=== PATIENT | female | born 1985 | race Caucasian/White ===

== ENCOUNTER 2017-03-17 19:21 | Emergency (ER) | payer BC ==
[2017-03-17 19:24] VITALS: BP 108/69; PULSE 54; TEMP 98
[2017-03-17] MEDS ORDERED: ZOLOFT 100MG100 MG PO (19:29)
[2017-03-17] MEDS ORDERED: LAMICTAL200 MG PO (19:29)
[2017-03-17] MEDS ORDERED: BACTROBAN15 GM TOP (19:30)
[2017-03-17] MEDS ORDERED: KLONOPIN2 MG PO (19:30)
[2017-03-17] MEDS ORDERED: NORCO 325 MG-51 TAB PO ×2 (20:24→21:05)
[2017-03-17] MEDS ORDERED: DOXYCYCLINE 10100 MG PO ×2 (20:24→21:05)
== END 2017-03-17 21:13 | disposition home or self-care (01) ==
LOC: COL.ER 19:21
DX: S61.012A Laceration without foreign body of left thumb without damage to nail, initial encounter (principal); L08.9 Local infection of the skin and subcutaneous tissue, unspecified; W26.0XXA Contact with knife, initial encounter; Y92.009 Unspecified place in unspecified non-institutional (private) residence as the place of occurrence of the external cause; F32.9 Major depressive disorder, single episode, unspecified

== ENCOUNTER 2018-04-15 07:03 | Inpatient (IN) | payer BC ==
[~2018-04-15] VITALS: Ht 162.6 cm; Wt 71.8 kg
[2018-04-15] VITALS (9 sets, daily range): BP systolic 104–131; BP diastolic 62–93; PULSE 53–77; TEMP 97.8
[~2018-04-15 07:03] MED LIST: BACTROBAN15 GM TOP; DOXYCYCLINE 10100 MG PO; KLONOPIN2 MG PO; LAMICTAL200 MG PO; NORCO 325 MG-51 TAB PO; ZOLOFT 100MG100 MG PO
[2018-04-15 19:44] LABS: BASO % 0.3 % (0.0-2.0); EOS # 0.1 (0.0-0.7); EOS % 0.9 % (0-4.0); GRAN # 5.2 (1.4-6.5); GRAN % 69.7 % (42.2-75.2); HEMATOCRIT 42.7 % (37.0-47.0); HEMOGLOBIN 14.8 g/dl (12.5-16.0); LYMPH # 1.7 (1.2-3.4); LYMPH % 22.7 % (20.0-51.0); MEAN CELL VOLUME 93 fl (80.0-100.0); MEAN CORPUSCULAR HEMOGLOBIN 32 pg (27.0-31.0); MEAN CORPUSCULAR HGB CONC 35 g/dl (33.0-37.0); MEAN PLATELET VOLUME 11.1 fl (7.4-10.4); MONO # 0.4 (0.1-0.6); MONO % 5.9 % (1.7-9.3); PLATELET COUNT 146 K/mm3 (130-400); RED BLOOD COUNT 4.61 M/mm3 (4.10-5.30); REDCELL DISTRIBUTION WIDTH-CV 13.1 % (11.5-14.5)
[2018-04-16] VITALS (54 sets, daily range): BP systolic 96–166; BP diastolic 60–87; PULSE 57–153; TEMP 97.5–98.9
[2018-04-16] MEDS ORDERED: CALCIUM CARBON650 M2 (17:51)
[2018-04-16] MEDS ORDERED: PRENATAL1 TA7 PO (17:51)
[2018-04-17 00:04] VITALS: BP 112/71; PULSE 83; TEMP 97.6
[2018-04-17 05:07] VITALS: BP 109/67; PULSE 102; TEMP 97.5
[2018-04-17 07:10] VITALS: BP 112/69; PULSE 96; TEMP 98.5
[2018-04-17 07:47] LABS: HEMATOCRIT 34.3 % (37.0-47.0); HEMOGLOBIN 11.8 g/dl (12.5-16.0)
[2018-04-17] MEDS ORDERED: IBU600 MG PO (08:38)
[2018-04-17] MEDS ORDERED: LOVENOX 4040 MG/0.4 SQ (08:38)
[2018-04-17] MEDS ORDERED: PERCOCET 325 MG1 TA2 PO (08:38)
[2018-04-17 16:19] VITALS: BP 126/75; PULSE 67; TEMP 97.8
[2018-04-17 21:00] VITALS: BP 112/81; PULSE 74; TEMP 97.8
[2018-04-18 04:00] VITALS: BP 116/73; PULSE 72; TEMP 98.1
[2018-04-18 06:30] VITALS: BP 123/74; PULSE 84; TEMP 97.9
== END 2018-04-18 14:55 | disposition home or self-care (01) | DRG 775 ==
LOC: LDR 07:03 → OB 04-16 15:00
PROVIDERS: Obstetrics & Gynecology
PROC: 10D07Z6 Extraction of Products of Conception, Vacuum, Via Natural or Artificial Opening (ICD-10-PCS; principal; 2018-04-16)
PROC: 0KQM0ZZ Repair Perineum Muscle, Open Approach (ICD-10-PCS; 2018-04-16)
PROC: 10907ZC Drainage of Amniotic Fluid, Therapeutic from Products of Conception, Via Natural or Artificial Opening (ICD-10-PCS; 2018-04-16)
PROC: 3E033VJ Introduction of Other Hormone into Peripheral Vein, Percutaneous Approach (ICD-10-PCS; 2018-04-16)
DX: O76 Abnormality in fetal heart rate and rhythm complicating labor and delivery (principal); O36.0930 Maternal care for other rhesus isoimmunization, third trimester, not applicable or unspecified; O99.12 Other diseases of the blood and blood-forming organs and certain disorders involving the immune mechanism complicating childbirth; D68.52 Prothrombin gene mutation; O70.1 Second degree perineal laceration during delivery; Z3A.40 40 weeks gestation of pregnancy; Z37.0 Single live birth; O99.344 Other mental disorders complicating childbirth; F41.8 Other specified anxiety disorders; O43.123 Velamentous insertion of umbilical cord, third trimester
CPT/HCPCS: J1650; J2540; J2590; J3105; J7120

== ENCOUNTER → 2018-04-22 | Outpatient (CLI) | payer BC ==
[~2018-04-22] MED LIST changes: +CALCIUM CARBON650 M2; +IBU600 MG PO; +LOVENOX 4040 MG/0.4 SQ; +PERCOCET 325 MG1 TA2 PO; +PRENATAL1 TA7 PO
== END ==
LOC: LAC 10:41
DX: Z39.1 Encounter for care and examination of lactating mother (principal); Z71.89 Other specified counseling

== ENCOUNTER → 2018-04-29 | Outpatient (CLI) | payer BC | LOC: LAC 10:52 | DX: Z39.1 Encounter for care and examination of lactating mother (principal); Z71.89 Other specified counseling ==

== ENCOUNTER → 2018-05-06 | Outpatient (CLI) | payer BC | LOC: LAC 11:07 | DX: Z39.1 Encounter for care and examination of lactating mother (principal); Z71.89 Other specified counseling ==

== ENCOUNTER → 2018-06-03 | Outpatient (CLI) | payer BC | LOC: LAC 10:28 | DX: Z39.1 Encounter for care and examination of lactating mother (principal); Z71.89 Other specified counseling ==

== ENCOUNTER 2019-06-14 08:09 | Emergency (ER) | payer BC ==
[~2019-06-14] VITALS: Ht 160 cm; Wt 61.8 kg
[2019-06-14 08:26] VITALS: TEMP 98.6
[2019-06-14] MEDS ORDERED: ZOLOFT 50MG50 MG PO (08:28)
[2019-06-14] MEDS ORDERED: CALCIUM CARBON650 M2 (08:29)
[2019-06-14 10:07] VITALS: BP 115/67; PULSE 77
== END 2019-06-14 10:08 | disposition home or self-care (01) ==
LOC: COL.ER 08:09
DX: R51 Headache (principal); Z90.89 Acquired absence of other organs; Z88.1 Allergy status to other antibiotic agents
CPT/HCPCS: J1200; J1885; J2765; J7030

== ENCOUNTER 2020-06-16 09:30 | Outpatient (CLI) | payer BC ==
[~2020-06-16] VITALS: Ht 162.6 cm; Wt 68.2 kg
[2020-06-16] VITALS (27 sets, daily range): BP systolic 96–127; BP diastolic 62–80; PULSE 65–104; TEMP 97.9–98.3
--- NOTE | 2020-06-16 09:16 | NUR ---
Patient ambulatory to LR3, changed into gown, FHR/TOCO monitors placed. Patient states that she has been having contractions the last two days and were pretty regular before she came in. Denies any leaking of fluid/vaginal bleeding/decreased movement. Plan of care discussed. 0925: SVE-fingertip/-[address] Garcia at bedside and reviewing FHR strip and updated.
[~2020-06-16 09:30] MED LIST changes: +ZOLOFT 50MG50 MG PO
--- NOTE | 2020-06-16 10:00 | NUR ---
0953- Dr Garcia at bedside. Discusses pain and symptoms. Orders received.
[2020-06-16] MEDS ORDERED: TYLENOL 500MG500 MG PO (10:02)
[2020-06-16 10:39] LABS: COLLECTION METHOD CLEAN CATCH
[2020-06-16 10:45] LABS: BASO % 0.2 % (0.0-2.0); EOS # 0.1 (0.0-0.7); EOS % 0.6 % (0-4.0); GRAN # 7.3 (1.4-6.5); GRAN % 80.6 % (42.2-75.2); HEMATOCRIT 36.8 % (37.0-47.0); HEMOGLOBIN 12.2 g/dl (12.5-16.0); LYMPH # 1.2 (1.2-3.4); LYMPH % 13.7 % (20.0-51.0); MEAN CELL VOLUME 93 fl (80.0-100.0); MEAN CORPUSCULAR HEMOGLOBIN 31 pg (27.0-31.0); MEAN CORPUSCULAR HGB CONC 33 g/dl (33.0-37.0); MEAN PLATELET VOLUME 11.7 fl (7.4-10.4); MONO # 0.4 (0.1-0.6); PLATELET COUNT 149 K/mm3 (130-400); RED BLOOD COUNT 3.94 M/mm3 (4.10-5.30); REDCELL DISTRIBUTION WIDTH-CV 13.3 % (11.5-14.5)
[2020-06-16 10:48] LABS: PH 7 (5-8); SQUAMOUS EPITHELIAL None Seen /hpf; URINE APPEARANCE Hazy; URINE BACTERIA None Seen /hpf; URINE BILIRUBIN Negative (NEGATIVE); URINE BLOOD Negative (NEGATIVE); URINE COLOR Yellow; URINE GLUCOSE Negative (NEGATIVE); URINE KETONE Trace (NEGATIVE); URINE LEUKOCYTE ESTERASE Negative (NEGATIVE); URINE NITRATE Negative (NEGATIVE); URINE PROTEIN(semi-quant) Negative (NEGATIVE); URINE RBC None Seen /hpf; URINE UROBILINOGEN Negative (NEGATIVE)
[2020-06-16 10:54] LABS: ALBUMIN 3.6 gm/dL (3.5-5.0); BILIRUBIN,TOTAL 0.3 mg/dL (0.0-1.0); CALCIUM 9.1 mg/dL (8.4-10.2); CREATININE, serum 0.65 (0.52-1.25); POTASSIUM 3.8 mmol/L (3.4-5.0); TOTAL PROTEIN 6.7 gm/dL (6.4-8.2)
--- NOTE | 2020-06-16 11:25 | NUR ---
1125- Pt states pain is bearable now, improved after Vistaril. Pt states pain is constant, mostly in her back, feeling cramping also but that pain does not compare to the other pain. Pt attempted to reposition from sitting straight up in bed to semi-fowlers with LL. Pt unable to tolerate that position and assisted back to high-fowlers.
--- NOTE | 2020-06-16 12:30 | NUR ---
1200- Pt states pain continues to be constant, in her mid-back and around to her abd, can feel cramping with contractions but the cramping is bearable compaired to the other pain. Pt unable to tolerate pain laying down or on side. Most comfortable sitting up in high-fowlers position.
--- NOTE | 2020-06-16 13:30 | NUR ---
1325- Kpad given and precautions explained. Pt verbalizes understanding.
--- NOTE | 2020-06-16 14:33 | NUR ---
1401- Logan US tech at bedside. EFM and TOCO off. Pt repositioned to with WL. 1433- EFM and TOCO applied and tracing. Pt states no change in pain. 05/13.
--- NOTE | 2020-06-16 16:00 | NUR ---
1543- Pt states her pain has improved to 6/10. Pt up to bathroom to void. Pt visually more uncomfortable after returning to bed. Pt states pain is worse while up and walking around.
--- NOTE | 2020-06-16 17:00 | NUR ---
1700: Dr. Garcia at nurses station and reviews FHR strip and updated. 1705: Dr. Garcia at bedside and assessing patient. Discussing options to manage pain. Patient and spouse discussing decision. 1720: Patient wanting to stay the night and try pain medications here to rest. Dr. Garcia orders to give morphine 2mg IV, phenergan 12.5mg IV, and LR continuously through the night, can be intermittently monitored and regular diet. Patient agrees with plan of care. 1800: Patient nauseated at this time. 1815: Bedside report given to Ugo GILL.
--- NOTE | 2020-06-16 17:20 | NUR ---
SVE per physician-fingertip and thick and has no worries for active labor at this time.
[2020-06-17] VITALS (16 sets, daily range): BP systolic 90–105; BP diastolic 52–69; PULSE 76–112; TEMP 98.2
--- NOTE | 2020-06-17 07:40 | NUR ---
DR KIDD HERE TO SEE PT. PT DENIES ANY PAIN OR DISCOMFORT. DISCHARGE ORDER RECEIVED. IV DISCONTINUED. PT EATING BREAKFAST.
--- NOTE | 2020-06-17 08:30 | NUR ---
PT REPORTS SHE TOLERATED HER BREAKFAST WELL AND IS STILL NOT EXPERIENCING ANY PAIN LIKE YESTERDAY. WOULD LIKE TO GO HOME.
== END 2020-06-17 08:55 | disposition home or self-care (01) ==
LOC: LDR 09:30 → LDRO 09:30
PROVIDERS: Obstetrics & Gynecology
DX: O26.893 Other specified pregnancy related conditions, third trimester (principal); Z3A.35 35 weeks gestation of pregnancy
CPT/HCPCS: OP; J2270; J2550; J7120

== ENCOUNTER → 2020-07-12 | Outpatient (CLI) | payer BC ==
[~2020-07-12] MED LIST changes: +TYLENOL 500MG500 MG PO; +ZYRTEC 10MG10 MG PO
== END | disposition still patient (30) ==
LOC: ZCOL.LAB 08:00
DX: Z20.828 Contact with and (suspected) exposure to other viral communicable diseases (principal)

== ENCOUNTER 2020-07-15 07:26 | Inpatient (IN) | payer BC ==
[~2020-07-15] VITALS: Ht 162.6 cm; Wt 70.0 kg
[2020-07-15] VITALS (49 sets, daily range): BP systolic 99–138; BP diastolic 55–83; PULSE 56–91; TEMP 98.2–98.6
[~2020-07-15 07:26] MED LIST changes: -ZYRTEC 10MG10 MG PO
--- NOTE | 2020-07-15 07:35 | NUR ---
Patient arrives ambulatory with spouse for scheduled induction of labor. Patient reports occasional cramping but denies contractions, ROM, or vaginal bleeding. Reports normal movement. Patient changes into gown, EFM explained and placed. VSS. Reviewed plan of care for induction. Patient agrees and denies questions. Assessment completed. 0740- IV started in LFA, labs obtained and sent per order. LR infusing per order. Consents explained and signed. Patient denies questions. 0805- Reactive, category 1 FHR strip obtained. Reviewed Pitocin administration with patient, agrees and denies questions. Pitocin started at 2 mU per protocol and order. 0807- Variable deceleration noted tracing intermittently to 90 bpm while patient sitting upright in bed. Patient repositioned WL. Will continue to monitor.
[2020-07-15] MEDS ORDERED: ZYRTEC 10MG10 MG PO (07:54)
[2020-07-15] MEDS ORDERED: CALCIUM CARBON650 M2 (07:54)
[2020-07-15 08:12] LABS: BASO % 0.3 % (0.0-2.0); EOS # 0.1 (0.0-0.7); EOS % 1.5 % (0-4.0); GRAN # 5.7 (1.4-6.5); GRAN % 73.9 % (42.2-75.2); HEMOGLOBIN 12.2 g/dl (12.5-16.0); LYMPH # 1.4 (1.2-3.4); LYMPH % 17.7 % (20.0-51.0); MEAN CELL VOLUME 91 fl (80.0-100.0); MEAN CORPUSCULAR HEMOGLOBIN 31 pg (27.0-31.0); MEAN CORPUSCULAR HGB CONC 33 g/dl (33.0-37.0); MEAN PLATELET VOLUME 11.3 fl (7.4-10.4); MONO # 0.5 (0.1-0.6); MONO % 5.8 % (1.7-9.3); PLATELET COUNT 152 K/mm3 (130-400); REDCELL DISTRIBUTION WIDTH-CV 14.6 % (11.5-14.5)
[2020-07-15 08:14] LABS: HEMATOCRIT 36.5 % (37.0-47.0)
--- NOTE | 2020-07-15 08:50 | NUR ---
Dr. Garcia at bedside, reviews FHR strip since admission. Vertex presentation confirmed via bedside ultrasound per provider. SVE per provider . Discussing plan of care to continue Pitocin induction and physician will reevaluate for AROM later on. Orders to continue increasing Pitocin and patient may have epidural when desired. Patient agrees and denies questions.
--- NOTE | 2020-07-15 09:30 | NUR ---
Patient assisted to birthing ball after bathroom.
--- NOTE | 2020-07-15 11:20 | NUR ---
Patient standing at the bedisde rocking with contractions.
--- NOTE | 2020-07-15 12:30 | NUR ---
Patient requests to rest in bed. Repositioned LL with peanut ball.
--- NOTE | 2020-07-15 12:45 | NUR ---
Blood bank notifies RN regarding antibody screen from T&S specimen. RN notifies Dr. Garcia, orders to send out lab result. Patient updated on results and plan of care. Denies questions.
--- NOTE | 2020-07-15 13:10 | NUR ---
Patient back up to birthing ball.
--- NOTE | 2020-07-15 15:25 | NUR ---
1527- SVE per patient request /-2. Patient repositioned back on birthing ball. 1531- Variable deceleration noted to 50 bpm lasting approximately 60 seconds. Patient back to bed and repositioned LL. SVE unchanged, vertex well applied to cervix. Early decelerations noted upon repositioning. Dr. Garcia notified, see physician notification. Patient updated on plan of care. Breathing through contractions.
--- NOTE | 2020-07-15 16:35 | NUR ---
1635- Patient sitting upright in bed for epidural placement. Breathing through contractions. 1646- Epidural test dose by Chandler Cline CRNA. Patient tolerates well. No adverse reactions noted. 1641, 1643- Late deceleations noted with contractions. 1650- Patient repositioned WL following epidural. Updated on plan of care and safety.
--- NOTE | 2020-07-15 18:20 | NUR ---
Report to Gini Valentine RN who assumes care of patient at this time.
[2020-07-15] MEDS ORDERED: IBU600 MG PO (19:54)
[2020-07-15] MEDS ORDERED: LOVENOX 4040 MG/0.4 SQ (19:55)
--- NOTE | 2020-07-15 20:43 | NUR ---
1819 - FHR continues to have intermittent late decelerations with moderate variability and accelerations. SPO2 monitor applied to mother, RN at bedside. Mother repositioned to at 1822. Pitocin continued at 20mu/ml/hr per physician. 1830 - Variable decel following contraction, FHR continues to have moderate variability and accelerations. 1832 - Marked variability with contraction at 183 through 1834 followed by late deceleration with FHR blanca at 70. RN at bedside, verified FHR with maternal radial pulse. 1837 - IV fluid bolus started. 1852 - SVE 7-8/90/0. Marked variability with contraction. FSE application attempted at 1855, not tracing well and infant moved so unable to adjust. FHR monitoring continued with external monitor. Dr. Garcia to pt bedside at 1857. Current plan continued per physician, physician remains on unit. 1909 - Baseline indeterminate at this time. Periods of marked variability alternating with late declerations noted. FHR not tracing well, RN remians at bedside. Pt repositioned RL. 1913 - SVE C/+1. Dr. Garcia at desk and notified. Nursery RN notified. 1917 - Dr. Garcia to bedside. Chacko removed at this time, pt repositioned in [facility] for delivery. Dariusz Lovett RN of nursery to bedside. Pt pushing with contractions with physician and RN at bedside. Late decelerations and intermittent FHR monitoring continue. 1931 - Viable male delivered spontaneously by Dr. Garcia. Loose nuchal x1. placed on mother's abdomen, care of infant transferred to Dariusz Lovett RN of nursery. Cord clamped by Dr. Garcia and cut by father. Placenta spontaneously delivered at [address] Garcia. Pitocin started per protocol at this time. 2nd degree perineal repair performed by Dr. Garcia. 1944 - Pericare provided, pt repositioned for comfort, ice pack placed. Pt denies needs at this time.
[2020-07-16 00:03] VITALS: BP 110/59; PULSE 66
[2020-07-16 04:16] VITALS: BP 98/67; PULSE 73
[2020-07-16 07:30] VITALS: BP 108/62; PULSE 71; TEMP 97.7
[2020-07-16 09:01] LABS: HEMATOCRIT 32.6 % (37.0-47.0); HEMOGLOBIN 10.9 g/dl (12.5-16.0)
--- NOTE | 2020-07-16 12:32 | NUR ---
stopped by but nothing needed at this time.
[2020-07-16 13:00] VITALS: BP 96/58; PULSE 73; TEMP 98.1
[2020-07-16 16:48] VITALS: BP 111/70; PULSE 78; TEMP 98.2
[2020-07-16 21:25] VITALS: BP 122/75; PULSE 72; TEMP 97.8
[2020-07-17 08:33] VITALS: BP 116/73; PULSE 92; TEMP 97.9
== END 2020-07-17 11:00 | disposition home or self-care (01) | DRG 806 ==
LOC: LDR 07:26 → OB 14:40
PROVIDERS: ADMIT Obstetrics & Gynecology
PROC: 10E0XZZ Delivery of Products of Conception, External Approach (ICD-10-PCS; principal; 2020-07-15)
PROC: 0KQM0ZZ Repair Perineum Muscle, Open Approach (ICD-10-PCS; 2020-07-15)
PROC: 10907ZC Drainage of Amniotic Fluid, Therapeutic from Products of Conception, Via Natural or Artificial Opening (ICD-10-PCS; 2020-07-15)
DX: O99.344 Other mental disorders complicating childbirth (principal); O99.12 Other diseases of the blood and blood-forming organs and certain disorders involving the immune mechanism complicating childbirth; Z37.0 Single live birth; D68.52 Prothrombin gene mutation; F41.9 Anxiety disorder, unspecified; F32.9 Major depressive disorder, single episode, unspecified; O70.1 Second degree perineal laceration during delivery; O99.52 Diseases of the respiratory system complicating childbirth; J45.909 Unspecified asthma, uncomplicated; O26.893 Other specified pregnancy related conditions, third trimester; O69.81X0 Labor and delivery complicated by cord around neck, without compression, not applicable or unspecified; Z3A.39 39 weeks gestation of pregnancy; Z67.91 Unspecified blood type, Rh negative
CPT/HCPCS: J1650; J2590; J7120

== ENCOUNTER → 2021-02-02 | Outpatient (CLI) | payer BC ==
[~2021-02-02] MED LIST changes: +ZYRTEC 10MG10 MG PO
== END ==
LOC: MC.RAD 08:19
DX: N64.4 Mastodynia (principal)

== ENCOUNTER 2022-07-10 20:11 | Emergency (ER) | payer BC ==
[~2022-07-10] VITALS: Ht 160 cm; Wt 60.6 kg
[2022-07-10 20:16] VITALS: BP 129/60; PULSE 70; TEMP 98.2
[2022-07-10] MEDS ORDERED: ZOLOFT 100MG100 MG PO (20:21)
[2022-07-10] MEDS ORDERED: ASPIRIN 32325 MG/TAB PO (20:21)
== END 2022-07-10 21:22 | disposition home or self-care (01) ==
LOC: COL.ER 20:11
DX: M25.532 Pain in left wrist (principal); Z28.310 Unvaccinated for COVID-19